=== PATIENT | male | born 1945 | race Caucasian/White ===

== ENCOUNTER 2017-08-05 06:12 | Day surgery (SDC) | payer MEDICARE ==
[~2017-08-05] VITALS: Ht 182.9 cm; Wt 93.1 kg
[~2017-08-05 06:12] MED LIST: WARF2; WARF2.5; WARF3
== END 2017-08-05 09:08 | disposition home or self-care (01) ==
LOC: ORSCSDS 06:12
PROVIDERS: Internal Medicine Gastroenterology
PROC: 0DBE8ZX Excision of Large Intestine, Via Natural or Artificial Opening Endoscopic, Diagnostic (ICD-10-PCS; principal; 2017-08-05 07:45)
DX: K51.90 Ulcerative colitis, unspecified, without complications (principal); K63.5 Polyp of colon; K62.1 Rectal polyp; K57.30 Diverticulosis of large intestine without perforation or abscess without bleeding; Z86.718 Personal history of other venous thrombosis and embolism; Z79.01 Long term (current) use of anticoagulants
CPT/HCPCS: 88305; J0330; J1980; J2405; J7120

== ENCOUNTER 2018-10-17 07:26 | Day surgery (SDC) | payer MEDICARE ==
[~2018-10-17] VITALS: Ht 182.9 cm; Wt 87.0 kg
--- NOTE | 2018-10-17 08:14 | NUR ---
10/17/[address] WAS CONSUTED FOR PT HX AND CURRENT A. FLUTTER OK TO PROCEED WITH NURSE SEDATION LONG MAINTAINS HR < 120.
== END 2018-10-17 10:34 | disposition home or self-care (01) ==
LOC: ORSCSDS 07:26
PROVIDERS: Internal Medicine Gastroenterology
PROC: 0DBL8ZX Excision of Transverse Colon, Via Natural or Artificial Opening Endoscopic, Diagnostic (ICD-10-PCS; principal; 2018-10-17 09:00)
PROC: 0DBK8ZX Excision of Ascending Colon, Via Natural or Artificial Opening Endoscopic, Diagnostic (ICD-10-PCS; principal; 2018-10-17 09:00)
PROC: 0DBN8ZX Excision of Sigmoid Colon, Via Natural or Artificial Opening Endoscopic, Diagnostic (ICD-10-PCS; principal; 2018-10-17 09:00)
PROC: 0DBM8ZX Excision of Descending Colon, Via Natural or Artificial Opening Endoscopic, Diagnostic (ICD-10-PCS; principal; 2018-10-17 09:00)
PROC: 0DBH8ZX Excision of Cecum, Via Natural or Artificial Opening Endoscopic, Diagnostic (ICD-10-PCS; principal; 2018-10-17 09:00)
PROC: 0DBP8ZX Excision of Rectum, Via Natural or Artificial Opening Endoscopic, Diagnostic (ICD-10-PCS; principal; 2018-10-17 09:00)
DX: K51.90 Ulcerative colitis, unspecified, without complications (principal); K63.5 Polyp of colon; K57.30 Diverticulosis of large intestine without perforation or abscess without bleeding; K64.8 Other hemorrhoids; Z83.71 Family history of colonic polyps; I48.3 Typical atrial flutter; Z86.718 Personal history of other venous thrombosis and embolism; Z79.01 Long term (current) use of anticoagulants
CPT/HCPCS: 88305; J2704; J7120

== ENCOUNTER 2019-01-05 11:08 | Emergency (ER) | payer MEDICARE, OTHER ==
[~2019-01-05] VITALS: Ht 182.9 cm; Wt 73.9 kg
[~2019-01-05 11:08] MED LIST changes: -WARF2.5
[2019-01-05] MEDS ORDERED: Buspirone HCl7.5 MG PO (11:21)
[2019-01-05] MEDS ORDERED: Norco 5-325 Ta1 EACH PO (15:36)
[2019-01-05] MEDS ORDERED: Robaxin500 MG PO (15:36)
== END 2019-01-05 15:50 | disposition home or self-care (01) ==
LOC: ER 11:08
DX: G89.29 Other chronic pain (principal); M54.5 Low back pain; Z88.0 Allergy status to penicillin; Z88.8 Allergy status to other drugs, medicaments and biological substances
CPT/HCPCS: 36415; 72100; 93005; 93010; 96374; 96375; 99283-25; J1885; J2405; J3010

== ENCOUNTER 2019-01-07 13:37 | Inpatient (IN) | payer MEDICARE, OTHER ==
[~2019-01-07] VITALS: Ht 182.9 cm; Wt 80.5 kg
[~2019-01-07 13:37] MED LIST changes: +Buspirone HCl7.5 MG PO; +Norco 5-325 Ta1 EACH PO; +Robaxin500 MG PO
[2019-01-07 14:51] LABS: BASOPHILS ABSOLUTE AUTO 0.03 K/mm3 (0.00-0.23); BASOPHILS PERCENT AUTO 0 % (0-2); EOSINOPHILS ABSOLUTE AUTO 0.02 K/mm3 (0.00-0.68); EOSINOPHILS PERCENT AUTO 0 % (0-6); Hematocrit 44.9 % (37.0-53.0); Hemoglobin 14.5 g/dL (13.5-17.5); IMMATURE GRAN ABSOLUTE AUTO 0.03 K/mm3 (0.00-0.10); IMMATURE GRAN PERCENT AUTO 0 % (0-1); LYMPHOCYTES ABSOLUTE AUTO 0.68 K/mm3 (0.84-5.20); LYMPHOCYTES PERCENT AUTO 7 % (21-46); MONOCYTES ABSOLUTE AUTO 0.64 K/mm3 (0.16-1.47); MONOCYTES PERCENT AUTO 6 % (4-13); Mean Corpuscular HGB 28.9 pg (26.0-34.0); Mean Corpuscular HGB Conc 32.3 g/dL (31.5-36.5); Mean Corpuscular Volume 90 fL (80-100); Mean Platelet Volume 9.9 fL (9.1-12.4); NEUTROPHILS PERCENT AUTO 87 % (41-73); Platelet Count 198 K/mm3 (150-400); RDW Coefficient Variation 12.7 % (11.7-14.2); RDW Standard Deviation 41.7 fL (35.1-46.3); Red Blood Cell Count 5.01 M/mm3 (4.30-5.90)
[2019-01-07 15:10] LABS: International Normalized Ratio 2.79; Prothrombin Time Results 26.9 Sec (9.7-11.5)
[2019-01-07 15:12] LABS: Alanine Aminotransfer (ALT/SGP 22 U/L (12-78); Albumin, Blood 2.7 g/dL (3.4-5.0); Albumin/Globulin Ratio 0.5 (0.8-1.8); Alk Phos 136 U/L (50-136); Anion Gap 9 mmol/L (6-16); Aspartate Aminotrans (AST/SGOT 50 U/L (12-37); Blood Urea Nitrogen 20 mg/dL (8-24); Bun/Creatinine Ratio 26.6 (12.0-20.0); CO2, Blood 26 mmol/L (21-32); CPK Creatine Kinase 749 U/L (39-308); Calcium, Blood 8.6 mg/dL (8.5-10.1); Chloride, Blood 102 mmol/L (98-108); Creatine Kinase MB 5.4 ng/mL (0.0-3.6); Creatine Kinase MB Index 0.7 (0.0-4.0); Creatinine, Blood 0.75 mg/dL (0.60-1.20); Globulin, Blood 5.4 g/dL (2.2-4.0); Glomerular Filtration Rate >60 (60-); Glucose, Blood 142 mg/dL (70-99); Potassium, Blood 3.9 mmol/L (3.5-5.5); Sodium, Blood 137 mmol/L (136-145); Total Protein, Blood 8.1 g/dL (6.4-8.2)
[2019-01-07] MEDS ORDERED: METCAR500 PO (15:51)
[2019-01-07] MEDS ORDERED: WARF2.5 PO (15:51)
[2019-01-07] MEDS ORDERED: TYLECOD3 PO (15:52)
--- NOTE | 2019-01-07 18:44 | NUR ---
SHIFT SUMMARY ED ADMIT THIS EVENING. PATIENT SETTLED INTO ROOM. PATIENT SLEEPY AND CONFUSED. PAINFUL WITH MOVEMENT. VERY WEAK, BEDPAN AND URINAL USED UNTIL PT CAN EVALUATE OR PATIENT BECOMES LESS DROWSY. CALL LIGHT IN REACH.
[2019-01-08 05:20] LABS: International Normalized Ratio 2.51; Prothrombin Time Results 24.5 Sec (9.7-11.5)
[2019-01-08 05:23] LABS: Albumin, Blood 2.5 g/dL (3.4-5.0); Anion Gap 5 mmol/L (6-16); Blood Urea Nitrogen 16 mg/dL (8-24); Bun/Creatinine Ratio 21.3 (12.0-20.0); CO2, Blood 29 mmol/L (21-32); Calcium, Blood 8.4 mg/dL (8.5-10.1); Chloride, Blood 104 mmol/L (98-108); Creatinine, Blood 0.75 mg/dL (0.60-1.20); Glomerular Filtration Rate >60 (60-); Glucose, Blood 95 mg/dL (70-99); Phosphorus, Blood 3.2 mg/dL (2.5-4.9); Potassium, Blood 4.1 mmol/L (3.5-5.5); Sodium, Blood 138 mmol/L (136-145)
--- NOTE | 2019-01-08 06:36 | NUR ---
SHIFT SUMMARY PATIENT AAOX4. 1 PERSON ASSIST WITH FWW AND GAIT BELT TO BATHROOM. PATIET FELL AT HOME AND HAS SIGNIFICANT SWELLINGON BOTH WYES AND ABRASIONS ON LEFT ARM WELL BILATERAL KNEES. PATIENT CALLS STAFF APPROPRIATELY. 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 BMX2.
--- NOTE | 2019-01-08 18:24 | NUR ---
CLINIMIX X2 BAGS STARTED THIS MORNING, CT SCAN WITH CONTRAST ORDERED. PT DRANK PO CONTRAST SCHEDULED WITHOUT DIFFICULTY. WAITING FOR SCAN AT THIS TIME. PT DENIES PAIN AND CALLS FOR ASSISTANCE APPROPRIATELY. NO ACUTE CHANGES NOTED, WILL CONTINUE TO MONITOR AND REPORT TO ONCOMING RN
[2019-01-08 20:54] LABS: Source, Urine Clean Catch
[2019-01-08 20:57] LABS: Bilirubin, Urine Neg (Neg); Blood, Urine 1+ (Neg); Glucose Qualitative, Urine Neg (Neg); Ketones, Urine Neg (Neg); Leukocyte Esterase, Urine Neg (Neg); Nitrite, Urine Neg (Neg); Protein, Urine Neg (Neg); Urobilinogen, Urine NORM (Normal)
[2019-01-08 21:15] LABS: Appearance, Urine Clear (Clear); Color, Urine Pale Yellow (P-Yellow)
[2019-01-08 21:17] LABS: Bacteria Rare /hpf; Red Blood Cells, Urine 0-2 /hpf (0-2); Squamous Epithelial Cells Not Seen /hpf (Few); White Blood Cells, Urine 0-2 /hpf (0-5)
[2019-01-09 05:07] LABS: BASOPHILS ABSOLUTE AUTO 0.07 K/mm3 (0.00-0.23); BASOPHILS PERCENT AUTO 1 % (0-2); EOSINOPHILS ABSOLUTE AUTO 0.52 K/mm3 (0.00-0.68); EOSINOPHILS PERCENT AUTO 7 % (0-6); Hematocrit 42.7 % (37.0-53.0); Hemoglobin 13.8 g/dL (13.5-17.5); IMMATURE GRAN ABSOLUTE AUTO 0.04 K/mm3 (0.00-0.10); IMMATURE GRAN PERCENT AUTO 1 % (0-1); LYMPHOCYTES ABSOLUTE AUTO 1.32 K/mm3 (0.84-5.20); LYMPHOCYTES PERCENT AUTO 19 % (21-46); MONOCYTES ABSOLUTE AUTO 0.55 K/mm3 (0.16-1.47); MONOCYTES PERCENT AUTO 8 % (4-13); Mean Corpuscular HGB 28.6 pg (26.0-34.0); Mean Corpuscular HGB Conc 32.3 g/dL (31.5-36.5); Mean Corpuscular Volume 89 fL (80-100); NEUTROPHILS ABSOLUTE AUTO 4.56 K/mm3 (1.96-9.15); NEUTROPHILS PERCENT AUTO 65 % (41-73); Platelet Count 159 K/mm3 (150-400); RDW Coefficient Variation 12.9 % (11.7-14.2); RDW Standard Deviation 41.5 fL (35.1-46.3); Red Blood Cell Count 4.82 M/mm3 (4.30-5.90); White Blood Cell Count 7.06 K/mm3 (4.00-11.30)
[2019-01-09 05:23] LABS: International Normalized Ratio 2.58; Prothrombin Time Results 25.1 Sec (9.7-11.5)
[2019-01-09 05:29] LABS: Alanine Aminotransfer (ALT/SGP 28 U/L (12-78); Albumin, Blood 2.3 g/dL (3.4-5.0); Albumin/Globulin Ratio 0.5 (0.8-1.8); Alk Phos 112 U/L (50-136); Anion Gap 6 mmol/L (6-16); Aspartate Aminotrans (AST/SGOT 60 U/L (12-37); Bilirubin, Total 0.7 mg/dL (0.1-1.0); Blood Urea Nitrogen 22 mg/dL (8-24); CO2, Blood 27 mmol/L (21-32); Calcium, Blood 8.3 mg/dL (8.5-10.1); Chloride, Blood 101 mmol/L (98-108); Creatinine, Blood 0.76 mg/dL (0.60-1.20); Globulin, Blood 4.9 g/dL (2.2-4.0); Glomerular Filtration Rate >60 (60-); Glucose, Blood 100 mg/dL (70-99); Potassium, Blood 4.2 mmol/L (3.5-5.5); Sodium, Blood 134 mmol/L (136-145); Total Protein, Blood 7.2 g/dL (6.4-8.2)
--- NOTE | 2019-01-09 17:15 | NUR ---
PROVIDER CONSULT CONSULT CALLED DR YE OFFICE THIS AFTERNOON, DR YE TO SEE PT TOMORROW. RECORDS FROM THE [facility] SENT FOR VIA MEDICAL RECORDS WITH SIGNED CONSENT FROM PT.
--- NOTE | 2019-01-09 22:28 | NUR ---
IV STARTED ON DAY SHIFT BY SEYMOUR RANDHAWA NOT DOC. 20 G PATENT SALINE LOCKED
--- NOTE | 2019-01-10 04:44 | NUR ---
73 year old Male lives alone but has several Siblings who live nearby has recent cancer DX of the colon, mets to lungs. PT has several falls at home with scattered abraisions and bruises. Continues on fall precautions. Incontinent of urine several times despite being offered assist with urinal of toileting. Medicated for rt abd pain with helpful effect from one norco .
[2019-01-10 04:46] LABS: BASOPHILS ABSOLUTE AUTO 0.06 K/mm3 (0.00-0.23); BASOPHILS PERCENT AUTO 1 % (0-2); EOSINOPHILS ABSOLUTE AUTO 0.48 K/mm3 (0.00-0.68); EOSINOPHILS PERCENT AUTO 8 % (0-6); Hematocrit 44.1 % (37.0-53.0); Hemoglobin 14.1 g/dL (13.5-17.5); IMMATURE GRAN ABSOLUTE AUTO 0.05 K/mm3 (0.00-0.10); IMMATURE GRAN PERCENT AUTO 1 % (0-1); LYMPHOCYTES ABSOLUTE AUTO 1.26 K/mm3 (0.84-5.20); LYMPHOCYTES PERCENT AUTO 21 % (21-46); MONOCYTES ABSOLUTE AUTO 0.48 K/mm3 (0.16-1.47); MONOCYTES PERCENT AUTO 8 % (4-13); Mean Corpuscular HGB 28.8 pg (26.0-34.0); Mean Corpuscular Volume 90 fL (80-100); Mean Platelet Volume 9.9 fL (9.1-12.4); NEUTROPHILS ABSOLUTE AUTO 3.79 K/mm3 (1.96-9.15); NEUTROPHILS PERCENT AUTO 62 % (41-73); Platelet Count 167 K/mm3 (150-400); RDW Coefficient Variation 12.9 % (11.7-14.2); RDW Standard Deviation 42.5 fL (35.1-46.3); Red Blood Cell Count 4.89 M/mm3 (4.30-5.90); White Blood Cell Count 6.12 K/mm3 (4.00-11.30)
[2019-01-10 05:03] LABS: International Normalized Ratio 2.42; Prothrombin Time Results 23.7 Sec (9.7-11.5)
[2019-01-10 05:13] LABS: Alanine Aminotransfer (ALT/SGP 28 U/L (12-78); Albumin, Blood 2.4 g/dL (3.4-5.0); Albumin/Globulin Ratio 0.5 (0.8-1.8); Alk Phos 113 U/L (50-136); Anion Gap 6 mmol/L (6-16); Aspartate Aminotrans (AST/SGOT 52 U/L (12-37); Bilirubin, Total 0.5 mg/dL (0.1-1.0); Blood Urea Nitrogen 24 mg/dL (8-24); Bun/Creatinine Ratio 35.6 (12.0-20.0); CO2, Blood 28 mmol/L (21-32); Calcium, Blood 8.4 mg/dL (8.5-10.1); Chloride, Blood 101 mmol/L (98-108); Creatinine, Blood 0.68 mg/dL (0.60-1.20); Glomerular Filtration Rate >60 (60-); Glucose, Blood 91 mg/dL (70-99); Potassium, Blood 4.2 mmol/L (3.5-5.5); Sodium, Blood 135 mmol/L (136-145); Total Protein, Blood 7.4 g/dL (6.4-8.2)
--- NOTE | 2019-01-10 16:20 | NUR ---
SUMMARY PT IS A/O X4, PLEASANT HOWEVER SOMEWHAT FLAT AFFECT. HE APPEARS WEAK/FATIGUED. GAIT WEAK, 1 ASSIST w FWW. HE AMBULATED IN [place] TODAY w PT/OT. OPERATION MANAGER ASSIST HIM TO SHOWER. HE HAS ABRASIONS/SCABS BILAT KNEES, STATE CHR KNEE PAIN, HAVE GIVEN NORCO FOR RELIEF. DR MCGEE HAD LONG VISIT w PT/FAMILY TODAY, ADDRESS CONCERNS & QUESTIONS TO THEIR SATISFACTION. PT HAS BEEN UP IN CHAIR MOST OF DAY. VSS.
[2019-01-11 04:52] LABS: BASOPHILS ABSOLUTE AUTO 0.06 K/mm3 (0.00-0.23); BASOPHILS PERCENT AUTO 1 % (0-2); EOSINOPHILS ABSOLUTE AUTO 0.46 K/mm3 (0.00-0.68); EOSINOPHILS PERCENT AUTO 7 % (0-6); Hematocrit 44.6 % (37.0-53.0); Hemoglobin 14.4 g/dL (13.5-17.5); IMMATURE GRAN ABSOLUTE AUTO 0.07 K/mm3 (0.00-0.10); IMMATURE GRAN PERCENT AUTO 1 % (0-1); LYMPHOCYTES ABSOLUTE AUTO 1.33 K/mm3 (0.84-5.20); LYMPHOCYTES PERCENT AUTO 21 % (21-46); MONOCYTES ABSOLUTE AUTO 0.48 K/mm3 (0.16-1.47); MONOCYTES PERCENT AUTO 7 % (4-13); Mean Corpuscular HGB 28.7 pg (26.0-34.0); Mean Corpuscular HGB Conc 32.3 g/dL (31.5-36.5); Mean Corpuscular Volume 89 fL (80-100); Mean Platelet Volume 10.1 fL (9.1-12.4); NEUTROPHILS ABSOLUTE AUTO 4.05 K/mm3 (1.96-9.15); NEUTROPHILS PERCENT AUTO 63 % (41-73); Platelet Count 182 K/mm3 (150-400); RDW Coefficient Variation 13.2 % (11.7-14.2); RDW Standard Deviation 42.6 fL (35.1-46.3); Red Blood Cell Count 5.02 M/mm3 (4.30-5.90); White Blood Cell Count 6.45 K/mm3 (4.00-11.30)
[2019-01-11 05:06] LABS: International Normalized Ratio 2.3; Prothrombin Time Results 22.6 Sec (9.7-11.5)
[2019-01-11 05:13] LABS: Alanine Aminotransfer (ALT/SGP 57 U/L (12-78); Albumin, Blood 2.6 g/dL (3.4-5.0); Albumin/Globulin Ratio 0.5 (0.8-1.8); Alk Phos 123 U/L (50-136); Anion Gap 4 mmol/L (6-16); Aspartate Aminotrans (AST/SGOT 94 U/L (12-37); Bilirubin, Total 0.8 mg/dL (0.1-1.0); Blood Urea Nitrogen 21 mg/dL (8-24); CO2, Blood 31 mmol/L (21-32); Calcium, Blood 8.5 mg/dL (8.5-10.1); Chloride, Blood 100 mmol/L (98-108); Creatinine, Blood 0.81 mg/dL (0.60-1.20); Globulin, Blood 4.9 g/dL (2.2-4.0); Glomerular Filtration Rate >60 (60-); Glucose, Blood 90 mg/dL (70-99); Potassium, Blood 4.3 mmol/L (3.5-5.5); Sodium, Blood 135 mmol/L (136-145); Total Protein, Blood 7.5 g/dL (6.4-8.2)
--- NOTE | 2019-01-11 06:16 | NUR ---
SHIFT SUMMARY NO ACUTE EVENTS OVERNIGHT. PATIENT SLEPT THROUGHOUT THE CLINICAL LABORATORY AIDE. AAOX4. PATIENT STATED MULTIPLE TIMES THAT HE HAD A "LITTLE BIT" OF PAIN BUT REFUSED THE NEED OF PAIN MEDICATION FOR THIS NURSE. PATIENT UP TO BATHROOM WITH 1 PERSON ASSIST, FWW, AND GAIT BELT.
[2019-01-11] MEDS ORDERED: ACET325 PO (15:55)
[2019-01-11] MEDS ORDERED: Colace100 MG PO (15:55)
[2019-01-11] MEDS ORDERED: HYDR1TAB94 PO (15:56)
--- NOTE | 2019-01-11 16:19 | NUR ---
SUMMARY/TRANSFER TO SNF PT HAS BEEN UP IN CHAIR ALL DAY, INTERACTING WITH FAMILY. PLEASANT AFFECT. HE CONTINUES WEAK, 1 ASSIST TO BR w FWW/GB. DR ARELY GAN ORDER FOR TRANSFER TO REHAB TODAY. CARE MANAGERS MAKE ARRANGEMENT FOR TRANSFER TO [facility] THIS AFTERNOON. REPORT CALLED TO CONNIE FERGUSON RN. EVENING DOSE COUMADIN GIVEN. IV D/C INTACT. PT WILL HAVE W/C VAN TRANSPORT, P/U TIME APPROX 1730.
== END 2019-01-11 17:44 | DRG 436 ==
LOC: ER 13:37 → MEDS 13:38 → ENPENDDIS 01-11 15:39 → EDPENDDIS 01-11 15:39 → MEDS 01-11 17:44
PROVIDERS: Family Medicine; Physician Assistant; ADMIT Internal Medicine Endocrinology, Diabetes & Metabolism
DX: C22.0 Liver cell carcinoma (principal); C78.02 Secondary malignant neoplasm of left lung; C78.01 Secondary malignant neoplasm of right lung; K83.01 Primary sclerosing cholangitis; E44.0 Moderate protein-calorie malnutrition; R62.7 Adult failure to thrive; K74.60 Unspecified cirrhosis of liver; K75.81 Nonalcoholic steatohepatitis (NASH); I10 Essential (primary) hypertension; M54.5 Low back pain; E86.9 Volume depletion, unspecified; R29.6 Repeated falls; S00.93XA Contusion of unspecified part of head, initial encounter; W19.XXXA Unspecified fall, initial encounter; Z66 Do not resuscitate; Z85.828 Personal history of other malignant neoplasm of skin; Y92.002 Bathroom of unspecified non-institutional (private) residence as the place of occurrence of the external cause; Z79.01 Long term (current) use of anticoagulants; Z86.718 Personal history of other venous thrombosis and embolism; Z79.891 Long term (current) use of opiate analgesic; Z79.899 Other long term (current) drug therapy; Z68.24 Body mass index [BMI] 24.0-24.9, adult
CPT/HCPCS: 36415; 70450; 70486; 71260; 74177; 80053; 80069; 81001; 82550; 82553; 83690; 84100; 85025; 85610; 90471; 90714; 93005; 93010; 97110; 97116; 97161; 97166; 97530; 97535; 99285-25; A9270-GY; J7030; Q9967

== ENCOUNTER 2019-02-27 11:31 | Observation (INO) | payer MEDICARE, OTHER ==
[~2019-02-27] VITALS: Ht 182.9 cm; Wt 75.5 kg
[~2019-02-27 11:31] MED LIST changes: +ACET325 PO; +Colace100 MG PO; +HYDR1TAB94 PO; +METCAR500 PO; +TYLECOD3 PO; +WARF2.5 PO
[2019-02-27] MEDS ORDERED: Nexavar200 MG PO (11:39)
[2019-02-27 12:23] LABS: BASOPHILS ABSOLUTE AUTO 0.03 K/mm3 (0.00-0.23); BASOPHILS PERCENT AUTO 0 % (0-2); EOSINOPHILS ABSOLUTE AUTO 0.01 K/mm3 (0.00-0.68); EOSINOPHILS PERCENT AUTO 0 % (0-6); Hematocrit 49.6 % (37.0-53.0); Hemoglobin 15.8 g/dL (13.5-17.5); IMMATURE GRAN ABSOLUTE AUTO 0.03 K/mm3 (0.00-0.10); IMMATURE GRAN PERCENT AUTO 0 % (0-1); LYMPHOCYTES ABSOLUTE AUTO 1.07 K/mm3 (0.84-5.20); LYMPHOCYTES PERCENT AUTO 12 % (21-46); MONOCYTES ABSOLUTE AUTO 0.49 K/mm3 (0.16-1.47); MONOCYTES PERCENT AUTO 6 % (4-13); Mean Corpuscular HGB 28.5 pg (26.0-34.0); Mean Corpuscular HGB Conc 31.9 g/dL (31.5-36.5); Mean Corpuscular Volume 89 fL (80-100); Mean Platelet Volume 10.1 fL (9.1-12.4); NEUTROPHILS ABSOLUTE AUTO 7.28 K/mm3 (1.96-9.15); NEUTROPHILS PERCENT AUTO 82 % (41-73); Platelet Count 127 K/mm3 (150-400); RDW Coefficient Variation 14.6 % (11.7-14.2); RDW Standard Deviation 47.3 fL (35.1-46.3); Red Blood Cell Count 5.55 M/mm3 (4.30-5.90); White Blood Cell Count 8.91 K/mm3 (4.00-11.30)
[2019-02-27 12:40] LABS: Alanine Aminotransfer (ALT/SGP 27 U/L (12-78); Albumin, Blood 2.6 g/dL (3.4-5.0); Albumin/Globulin Ratio 0.4 (0.8-1.8); Alk Phos 154 U/L (50-136); Anion Gap 9 mmol/L (6-16); Aspartate Aminotrans (AST/SGOT 46 U/L (12-37); Bilirubin, Total 1.6 mg/dL (0.1-1.0); Blood Urea Nitrogen 38 mg/dL (8-24); CO2, Blood 23 mmol/L (21-32); Calcium, Blood 8.7 mg/dL (8.5-10.1); Chloride, Blood 104 mmol/L (98-108); Creatinine, Blood 0.86 mg/dL (0.60-1.20); Globulin, Blood 6.1 g/dL (2.2-4.0); Glomerular Filtration Rate >60 (60-); Glucose, Blood 172 mg/dL (70-99); Sodium, Blood 136 mmol/L (136-145); Total Protein, Blood 8.7 g/dL (6.4-8.2)
[2019-02-27 14:30] LABS: Source, Urine Clean Catch
[2019-02-27 14:42] LABS: Blood, Urine 2+ (Neg); Glucose Qualitative, Urine Neg (Neg); Ketones, Urine 1+ (Neg); Leukocyte Esterase, Urine 1+ (Neg); Nitrite, Urine Neg (Neg); Protein, Urine 3+ (Neg); Urobilinogen, Urine 2+ (Normal)
[2019-02-27 14:54] LABS: Appearance, Urine Clear (Clear); Bilirubin, Urine 1+ (Neg); Color, Urine Amber (P-Yellow)
[2019-02-27 14:56] LABS: Bacteria Rare /hpf; Red Blood Cells, Urine 0-2 /hpf (0-2); Squamous Epithelial Cells Few /hpf (Few)
[2019-02-27 14:57] LABS: Hyaline Casts Rare /lpf (0-2)
--- NOTE | 2019-02-27 17:25 | NUR ---
Initial Visit: ED Palliative Care Consult for Goals of Care. Spoke with Dr Wong and discussed case. Pt is A&O and reports 9/10 pain mainly in his lung area but C/O generalized pain as well. Pt denies dyspnea at this time. Pt's brother Jordan is present during visit. Engaged in therapeutic discussion regarding goals of care. Pt currently lives at home alone. Jordan reports goals are for Pt to be placed in a higher level of care. Engaged in discussion regarding Pt's cancer. Jordan reports Pt's oncologist is Dr Us and has been told without treatment Pt has 4 to 5 months and with treatment possibly 18 months. Pt and brother are aware cancer treatment is palliative. Discussed hospice as an option and educted on hospice philosophy. Pt is a little withrawn from conversation and does not respond to this option. Brother reports his sons are usually in charge of things. Pt has 3 sons all of who live in [place]. One of the sons is scheduled to come down tomorrow. Discussed code status and POLST. Brother Jordan reports Pt has completed POLST on refrigerator. Jordan reports Pt is a DNR and would not want to be intubated. Pt confirms these wishes. Pt is agreeable for palliative care to F/U when he is admitted to the floor. No concerns reported at this time. Spoke with Dr Thompson and discussed case. Spoke with sales planner Stacey and discussed case. Palliative Care will remain available.
--- NOTE | 2019-02-27 19:33 | NUR ---
TRANSFER REPORT FROM DANNA Ghosh in ER on 73 year old Male bering admitted with cancer with mets , falls weakness and inability to care for self . Lives alone reported to have liver and lung cancer with mets. DNR status await admission. Pallative care and SW referral have been made. PTs own med for oral chemo reported to have been sent to pharmacy for ID.
--- NOTE | 2019-02-28 02:49 | NUR ---
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 He has # Sons who live in [facility], . Brother in [place]. referral for placement due to expected decline related to metastatic cancer. Incontinet of bowel and bladder. skin at risk due to immobility poor nutritional intake and incontinence. Skin care to perianal area with karaclense and calmaseptic applied. Flat affect, pain with repositioning. DNR status, fall precautions continue.
[2019-02-28 05:25] LABS: International Normalized Ratio 1.56; Prothrombin Time Results 15.9 Sec (9.7-11.5)
[2019-02-28 05:50] LABS: Anion Gap 6 mmol/L (6-16); Blood Urea Nitrogen 22 mg/dL (8-24); CO2, Blood 26 mmol/L (21-32); Calcium, Blood 8.3 mg/dL (8.5-10.1); Chloride, Blood 106 mmol/L (98-108); Creatinine, Blood 0.65 mg/dL (0.60-1.20); Glomerular Filtration Rate >60 (60-); Glucose, Blood 75 mg/dL (70-99); Sodium, Blood 138 mmol/L (136-145)
--- NOTE | 2019-02-28 16:33 | NUR ---
Pt visit this afternoon. Pt resting in bed and appears comfortable. Pt denies pain at this time. Pt having trouble keeping his eyes open during visit. Family at bedside. Answered questions and concerns. Educated on hospice philosophy with V/U made by Pt. Dr Alba in earlier today and had discussion as well. Orders have been place for comfort care. Family report they have chosen [facility]. Family also have questions regarding discharge plan and deferred questions to [place] Finish Mixer Tanesha. Tanesha arrives to visit with family. Reported to Tanesha family has chosen [facility]. Spoke with bedside nurse Erika and discussed case. Palliative Care will remain available.
--- NOTE | 2019-03-01 03:49 | NUR ---
SHIFT SUMMARY PATIENT ON COMFORT CARE. AXOX 3 W/CONFUSION AT TIMES. INCONTINENT OF BOWEL AND BLADDER. CONTINUING LOOSE STOOLS. PIV REMAINS INTACT. DENIES PAIN, SOB, AND N/V. CHEMO MEDICATION WITH LINEN AND TRASH BAGGING PROTOCOL. BED ALARM ACTIVATED. BED IN LOWEST POSITION. CALL LIGHT IN REACH. WILL CONTINUE TO MONITOR UNTIL DAY SHIFT NURSE ASSUMES CARE.
--- NOTE | 2019-03-01 08:01 | NUR ---
PATIENT SLEEPING UPON NURSE ROUNDING. NO DISTRESS NOTED.
--- NOTE | 2019-03-01 11:42 | NUR ---
Comfort Care Visit: Pt resting in recliner chair and reports tolerable generalized pain. No S/S of distress at this time. Spoke with bedside nurse Jackelyn and discussed case. Jackelyn reports no concerns at this time. Spoke with [place] Esl Instructor Tanesha and discussed case. Palliative Care will remain available.
--- NOTE | 2019-03-01 13:55 | NUR ---
UP IN CHAIR FOR LUNCH
--- NOTE | 2019-03-01 18:31 | NUR ---
PATIENT UP IN CHAIR THIS SHIFT. PAIN MEDS GIVEN WHEN REQUESTED. NO ACUTE CHANGES THIS SHIFT. PATIENT ABLE TO EXPRESS ANY NEEDS. CALL LIGHT WITHIN REACH.
--- NOTE | 2019-03-01 18:44 | NUR ---
Spiritual Care inital note: Mr. Weiner was pleasantly confused and made little jokes with me. He denied pain or fears. His brother, Jordan, was at bedside. Jordan responded well to affirmation of obvious love and prayer. Jordan reports family is a peace with pt transitioning to hospice. Hoping for placement soon. No concerns presented. [employer] will remain available.
--- NOTE | 2019-03-02 03:41 | NUR ---
SHIFT SUMMARY PATIENT ON COMFORT CARE. NO ACUTE CHANGES OBSERVED THIS SHIFT. AXOX 3 AND IN CHAIR AT SHIFT CHANGE AND FOR THE NEXT FOUR HRS STAND PIVOT 2 MAX ASSIST TO BED. PATIENT INCONTINENT OF BOWEL/BLADDER. NO LOOSE STOOLS NOTED. DENIES PAIN, SOB, AND N/V. BED ALARM ACTIVATED. BED IN LOWEST POSITION. WILL CONTINUE TO MONITOR UNTIL DAY SHIFT NURSE ASSUMES CARE.
--- NOTE | 2019-03-02 09:49 | NUR ---
UP IN CHAIR
--- NOTE | 2019-03-02 16:52 | NUR ---
NO ACUTE CHANGES TO PATIENT. HAS BEEN UP IN CHAIR FOR MEALS . FAMILY IN . CALL LIGHT WITHIN REACH. PER FAMILY AND PATIENT CHEMO MEDS TO STOP. DOCTOR NOTIFIED.
--- NOTE | 2019-03-02 18:24 | NUR ---
ENSURE GIVEN. BROTHER IN CHATTING WITH PT
--- NOTE | 2019-03-02 18:24 | NUR ---
UP IN CHAIR FOR DINNER
--- NOTE | 2019-03-03 04:08 | NUR ---
SHIFT SUMMARY PT HAD AN UNEVENTFUL SHIFT. THE PT IS ALERT, ORIENTED, AND A HEAVY TWO ASSIST OUT OF BED. PT DIDN'T COMPLAIN OF ANY PAIN, NAUSEA, OR GENERAL DISCOMFORT. PT WAS REPOSITIONED APPROPRIATE. WILL CONTINUE TO MONITOR AND MAINTAIN PT COMFORT.
--- NOTE | 2019-03-03 11:58 | NUR ---
HE DENIES PAIN WHEN STILL. HAS PAIN FROM STIFFNESS WHEN MOVED. IT IS VERY DIFFICULT FOR HIM TO MOVE. ATTENDS CHANGED AND UP TO CHAIR WITH 2 ASSIST FOR BREAKFAST. HE IS ALERT, ANSWERING QUESTIONS APPROPRIATELY. HE IS WEAK AND FEARFUL DURING TRANSFERS. THIS IS AN 8 AM NOTE.
--- NOTE | 2019-03-03 12:03 | NUR ---
1000 NOTE STILL SITTING UP IN THE CHAIR. HE ATE ONLY 10% BREAKFAST. HE IS WORKING ON THE [employer]. NO COMPLAINTS.
--- NOTE | 2019-03-03 12:04 | NUR ---
1200 NOTE HE HAS BEEN PUT BACK TO BED WITH 2 ASSIST. IT IS VERY DIFFICULT FOR HIM TO GET TO A STAND AND HE TAKES STEPS VERY SLOWLY. HE STAYED AWAKE IN THE CHAIR ALL MORNING BUT WENT RIGHT TO SLEEP WHEN BACK IN BED. NO COMPLAINTS.
--- NOTE | 2019-03-03 16:23 | NUR ---
1400 NOTE HIS SON WAS HERE WAS A VIDEOTAPE SALES REPRESENTATIVE FROM [facility]. PATIENT ABLE TO ANSWER A LOT OF QUESTIONS. HE HAS EATEN VERY POORLY TODAY. I HAVE ENCOURAGED HIM BUT TO NO AVAIL. HE WAS UNABLE TO SWALLOW A PAIN PILL IN APPLESAUCE, OR PUDDING, OR WITH WATER. GAVE LIQUID OXYCODONE INSTEAD.
--- NOTE | 2019-03-03 16:25 | NUR ---
1600 NOTE HE WORKED WITH PT AND IS NOW UP IN THE CHAIR. HE AMBULATED WITH WALKER TO THE BATHROOM BUT WAS UNABLE TO HAVE A BM.
--- NOTE | 2019-03-03 18:02 | NUR ---
HE IS UP IN THE CHAIR FOR DINNER. HE AMBULATED IN THE ROOM WITH PT. HE RECEIVED OXYCODONE X1 TODAY FOR PAIN ALL OVER. WILL OFFER XYLOCAINE VISCOUS FOR HIS SORE MOUTH. SON VISITED AND MET WITH DANIELA NIETO IN THE ROOM TODAY.
--- NOTE | 2019-03-04 07:46 | NUR ---
SHIFT SUMMARY PT CONTINUES TO BE ALERT AND A HEAVY 2 ASSIST WITH GAIT BELT AND WALKER. PT DENIED ANY PAIN, FEVER, DELERIUM, OR NAUSEA. PT WAS CHANGED WHEN HE WAS INCONTINENT AND AT 0645 RECEIVED A BED BATH. A SMALL AMOUNT OF ADDISON BLOOD WAS NOTED TO HAVE COME FROM THE ANUS. THE DAY NURSE WAS MADE AWARE AND WOULD PASS THAT ON TO THE MDS. PT ALSO HAD SCANT BLEEDING FROM THE RIGHT OUTER EAR. PT STATED THAT THAT SOMETIMES HAPPENS. WHEN THIS RN DISCOVERED THE BLEEDING IT HAD ALREADY SCABBED OVER. PRILOSEC WAS HELD THIS MORNING DUE TO SWALLOWING CONCERNS PRILOSEC IS NOT CRUSHABLE. NO OTHER COMPLAINTS FROM THE PT AT THIS TIME. PT HAD NO FURTHER SKIN BREAKDOWN NOTED. WILL CONTINUE TO MONITOR.
--- NOTE | 2019-03-04 08:18 | NUR ---
HE IS ALERT AND APPROPRIATE IN CONVERSATION. VERBAL RESPONSES ARE SLOW. I SEE THRUSH IN HIS MOUTH. WILL ASK MD TODAY FOR TREATMENT. I DISCUSSED FOOD TEXTURE WITH HIM. HE IS NOT KEEN ON CHANGING IT. WILL START WITH MECH SOFT.
--- NOTE | 2019-03-04 08:22 | NUR ---
HIS DENTURES DO NOT FIT. EVEN WITH ADHESIVE THEY DON'T STAY IN PLACE WELL.
--- NOTE | 2019-03-04 08:38 | NUR ---
UP IN THE CHAIR WITH ASSIST AND A WALKER FOR BREAKFAST.
--- NOTE | 2019-03-04 11:29 | NUR ---
STILL UP IN THE RECLINER CHAIR BUT JUST RECLINED SO HE CAN REST. HE HAD POOR PO INTAKE AGAIN THIS MORNING.
--- NOTE | 2019-03-04 12:09 | NUR ---
SOAKING HIS NAILS IN SOAPY WATER TRYING TO CLEAN THEM. HE DENIES NEED FOR ANY PAIN MEDICINE. ROUNDED. ORDERS RECEIVED REGARDING PRILOSEC DELIVERY AND ORAL THRUSH.
--- NOTE | 2019-03-04 13:57 | NUR ---
MYCELEX HAS BEEN STARTED FOR THRUSH. NO BM TODAY SO FAR. HE ENJOYED A LITTLE PEPSI AT LUNCH TIME. HE ATE SOME PUDDING AND CUSTARD. HE DID NOT WANT THE HOT FOOD. HE DID NOT WANT HIS TEETH IN. HE SAID HE HATES THE CHANGES HE IS GOING THROUGH RIGHT NOW.
--- NOTE | 2019-03-04 15:09 | NUR ---
HE IS BACK IN BED. HE HAS NOT VOIDED SO FAR TODAY.
--- NOTE | 2019-03-04 16:49 | NUR ---
ASLEEP. NO APPARENT DISTRESS.
--- NOTE | 2019-03-04 18:15 | NUR ---
HE IS TRYING HIS FIRST PUREED MEAL NOW. HIS APPETITE IS POOR PLUS HIS MOUTH HURTS FROM THRUSH. MYCELEX TROCHES STARTED TODAY BUT HE HATES THEM. HE HAS NOT VOIDED ALL DAY AND DOESN'T FEEL THE NEED. I JUST BLADDER SCANNED HIM. RESULT 367 MLS. HE HAS BEEN C/O A PAINFUL BOTTOM. I SEE AN OPEN AREA DIME SIZE IN THE BUTTOCK CRACK NEAR HIS RECTUM. CLEANED AND FOAM DRESSING APPLIED. HE HAD 1 VISITOR TODAY. HE SEEMS QUITE DEPRESSED WITH HIS CURRENT SITUATION. HE IS ALSO VERY STIFF AND HURTS WITH MOVEMENT BUT HAS REFUSED PAIN MEDICINE THROUGHOUT THE DAY.
--- NOTE | 2019-03-04 21:13 | NUR ---
OFFERRED NIGHT TIME MEDICATIONS AGAIN TO THE PT. EDUCATED PT ON IMPORTANCE OF TAKING THEM. PT CONTINUED TO REFUSE STATING HIS STOMACH FELT OFF. PT DENIED NAUSEA. THIS RN OFFERRED TO GET A STOOL SOFTENER FOR PT. PT REFUSED AND STATED HE WOULD WAIT UNTIL TOMORROW AND THAT HE JUST WANTED TO SLEEP AT THIS TIME. PT ALSO DENIED THE OFFER FOR PAIN MEDICATION AT THIS TIME. WILL CONTINUE TO MONITOR.
--- NOTE | 2019-03-05 04:27 | NUR ---
SHIFT SUMMARY PT ONLY COMPLAINED IN PAIN FROM HIS SACRAL WOUND. PT DENIED OFFER OF PAIN MEDICATION. PT WAS TURNED AND CHANGED APPROPRIATE. HE CONTINUES TO BE INCONTINENT OF BOWEL AND URINE. PT ALSO HAS BECOME A LITTLE CONFUSED, FORGETTING THAT HE IS IN THE HOSPITAL. NO OTHER PT COMPLAINTS AT THIS TIME. WILL CONTINUE TO MONITOR.
[2019-03-05] MEDS ORDERED: ATROPINE SULFATE2 ML SL (10:19)
[2019-03-05] MEDS ORDERED: CLOT10 SS (10:20)
[2019-03-05] MEDS ORDERED: HYDR1TAB94 PO (10:22)
[2019-03-05] MEDS ORDERED: Haldol5 MG/1 ML PO (10:22)
[2019-03-05] MEDS ORDERED: LIDOCAINE VISCOUS 2% MT (10:25)
[2019-03-05] MEDS ORDERED: LOPERAMIDE1 MG/7.5 M PO (10:26)
[2019-03-05] MEDS ORDERED: MIRT15ST MM (10:26)
[2019-03-05] MEDS ORDERED: INFUMORPH INH (10:29)
[2019-03-05] MEDS ORDERED: OMEPRAZOLE20 MG PO (10:29)
[2019-03-05] MEDS ORDERED: ONDA4 PO (10:30)
[2019-03-05] MEDS ORDERED: ONDA4ODT MM (10:30)
[2019-03-05] MEDS ORDERED: OXYCODONE10 MG/0.5 SL (10:32)
[2019-03-05] MEDS ORDERED: MIRALAX17 GM PO (10:32)
--- NOTE | 2019-03-05 15:11 | NUR ---
SPOKE WITH LADONNA IN DISCHARGE PLANNING AND SHE INFORMED ME THAT PATIENT HAS BEEN ACCEPTED BY [facility] AND WILL BE DISCHARGING TO THAT FACILITY POSSIBLY ON TUESDAY.
--- NOTE | 2019-03-05 15:34 | NUR ---
PATIENT HAS BEEN VERY TIRED TODAY AND SLEEPING MUCH. NO DESIRE TO EAT OR PARTICIPATE IN ANY SORT OF ACTIVITIES. HE REMAINS ON COMFORT CARE AND IS BEING REPOSITIONED Q2HRS AND CHANGED NEEDED. STAGE II PRESSURE ULCER NOTED TO COCCYX. MEPILEX DRESSING CHANGED AND PATIENT ROTATED SIDE TO SIDE TO KEEP HIM OFF HIS COCCYX. PATIENT CONTINUES TO SLEEP AT THIS TIME. WILL CONTINUE TO MONITOR AND PROVIDE CARE NEEDED.
--- NOTE | 2019-03-06 06:21 | NUR ---
PT awaiting Hospice dc to [facility] due to metastatic lung and liver cancer from skin cancer. Medicated x 2 with oxycodone 5 mg sl for genralized pain with helpful effect. Only took sips of water this shift, minimal output.
--- NOTE | 2019-03-06 08:00 | NUR ---
PT. LYING QUIETLY EYES CLOSED VERY LETHARGIC, ATTENDS AND BEDDING CHANGED.
--- NOTE | 2019-03-06 10:00 | NUR ---
PT. SLEEPING VERY SOMNOLENT, OPENS EYES AND CLOSES THEM WITHOUT RESPONDING.
--- NOTE | 2019-03-06 12:00 | NUR ---
PT. STILL SLEEPING, DID NOT WAKE UP FOR VISITORS OR LUNCH.
--- NOTE | 2019-03-06 14:00 | NUR ---
PT. STILL SLEEPING VISITORS RETURNED BUT PT. DID NOT RESPOND TO THEM OTHER THAN TO OPEN AND THEN CLOSE EYES.
--- NOTE | 2019-03-06 16:00 | NUR ---
NO CHANGE IN PT. BREATHING IS DEEP AND UNEVEN, HR IS IN THE HUNDRES DOES NOT RESPOND TO WHEN SPOKEN.
--- NOTE | 2019-03-06 18:00 | NUR ---
PT. AWOKE BRIEFLY WHEN FRIENDS SHOWED BUT WENT BACK TO SLEEP, REFUSED DINNER.
--- NOTE | 2019-03-06 19:22 | NUR ---
PT. TOOK ONE BITE OF DINNER AND REFUSED THE REST. NO NOTEABLE CHANGES THIS SHIFT.
--- NOTE | 2019-03-06 20:45 | NUR ---
PT has plesant affect when spoken to. He is weak but A & O. Room air, emaciated appearance. offered assist with oral intake, took sm amts of icecream when fed. Weakly hold water upright and takes sips with straw.
--- NOTE | 2019-03-07 08:15 | NUR ---
PT. SLEEPING AT THIS TIME OPENS EYES WHEN BEING SPOKEN TOO AND GOES BACK TO SLEEP.
--- NOTE | 2019-03-07 10:15 | NUR ---
PT SITTING UP STRAIGHT SLEEPING, BREAKFAST TRAY IN FRONT OF PT, WOKE PT AND GOT HIM TO TAKE ONE BITE, THEN HE REFUSES ANT MORE. WAS ABLE TO GIVE HIM PART OF HIS MEDICATIONS THIS MORNING.
--- NOTE | 2019-03-07 12:15 | NUR ---
PT. FAMILY ARRIVED TO ROOM BEFORE HE IS GREG TRANSFERRED TO [facility], JUST FOUND OUT HE WAS HERE.
--- NOTE | 2019-03-07 13:04 | NUR ---
REPORT CALLED TO MIMI AT [facility].
--- NOTE | 2019-03-07 14:15 | NUR ---
PT. BEING TRANSFERRED TO [facility] VIA [facility]. ENVELOPE GIVEN TO CHIP MIXING MACHINE OPERATOR OF [facility].
--- NOTE | 2019-03-07 14:18 | NUR ---
PT. TRANSFERRED TO [facility] HOSPICE.
== END 2019-03-07 14:03 | disposition home or self-care (01) ==
LOC: ER 11:31 → MEDS 11:32 → EDPENDDIS 03-04 11:17 → ENPENDDIS 03-04 11:17 → MEDS 03-07 14:03
PROVIDERS: Emergency Medicine; ADMIT Hospitalist
DX: C22.0 Liver cell carcinoma (principal); C78.00 Secondary malignant neoplasm of unspecified lung; K51.90 Ulcerative colitis, unspecified, without complications; K74.5 Biliary cirrhosis, unspecified; F17.220 Nicotine dependence, chewing tobacco, uncomplicated; K59.00 Constipation, unspecified; R29.6 Repeated falls; Z79.01 Long term (current) use of anticoagulants; Z86.79 Personal history of other diseases of the circulatory system; Z86.718 Personal history of other venous thrombosis and embolism
CPT/HCPCS: 36415; 71046; 80048; 80053; 81001; 85025; 85610; 87086; 93005; 93010; 94760; 96361; 96365; 96367; 97116; 97162; 97530; 99285-25; A9270-GY; G0378; J0456; J0696; J7030; J7050; J7120